=== PATIENT | female | born 1940 | race Caucasian/White ===

== ENCOUNTER 2024-04-20 18:41 | Observation (INO) | payer BC, SELFPAY ==
[2024-04-20] VITALS (10 sets, daily range): BP systolic 87–155; BP diastolic 50–79; BMI 34.3; BMI 34.6
[2024-04-20] MEDS: ZOFRAN 4 MG IV (15:38)
[2024-04-20] MEDS: NSS 1000 IV (15:38)
[2024-04-20 15:52] LABS: % Basophils 0.4 % (0-2); % Eosinophils 0.4 % (0-6); % Immature Granulocytes 0.4 % (0-0.5); % Lymphocytes 14.1 % (20.5-51.1); % Monocytes 7.9 % (1.7-9.3); % Neutrophils 76.8 % (42.2-75.2); Absolute Lymphocytes 1.4 10^3/uL (1.2-3.4); Absolute Monocytes 0.8 10^3/uL (0.1-0.6); Absolute Neutrophils 7.7 10^3/uL (1.4-6.5); Hematocrit 41.2 % (37.0-47.0); Hemoglobin 13.3 g/dL (12.0-16.0); Mean Corp Hgb Conc. 32.3 g/dL (33.0-37.0); Mean Corpuscular Hgb 28.7 pg (27.0-31.0); Mean Corpuscular Volume 88.8 fL (81.0-99.0); Mean Platelet Volume 11.5 fL (7.4-10.4); Nucleated Red Blood Cells % 0 %; Platelet Count 203 10^3/uL (130-400); Red Blood Cell Count 4.64 10^6/uL (4.20-5.40); White Blood Cell Count 10.1 10^3/uL (4.8-10.8)
[2024-04-20 16:08] LABS: ALT (SGPT) 33 U/L (0-35); AST (SGOT) 31 U/L (14-36); Albumin 3.9 g/dl (3.5-5.0); Alkaline Phosphatase 104 U/L (38-126); Blood Urea Nitrogen 29 mg/dl (7-17); Calcium 9.1 mg/dl (8.4-10.2); Carbon Dioxide 26 mmol/L (22-30); Chloride 106 mmol/L (98-107); Estimated Creatinine Clearance 46 ml/min; Glucose 129 mg/dl (70-99); Potassium 4.1 mmol/L (3.5-5.1); Sodium 140 mmol/L (135-145); Total Bilirubin 1.2 mg/dl (0.2-1.3); Total Protein 6.4 g/dl (6.3-8.2)
--- NOTE | 2024-04-20 16:31 | ED.GENMED ---
History of Present Illness
General
Chief Complaint: Dizziness
Source: patient
Exam Limitations: none
Time Seen by Provider: 04/20/24 15:14
Nursing documentation reviewed up to this point in time: agreed with
History of Present Illness
History of Present Illness:
83-year-old female Eliquis for A-fib vertigo 15 years ago treated with what sounds like vestibular therapy presents with acute onset of dizziness room spinning nausea similar to her prior vertigo at 10 AM no headache no arm or leg weakness, given
Ativan by EMS feeling a bit better no alcohol, non-smoker lives in the [facility], planning on driving home later today if she is feeling better
Past History
Past History
ED Past Medical History: Arrthythmia; Negative CVA
Social History
Tobacco: Non-smoker
Alcohol: None
Drug: None
Personal:
Living: with family
Employment: Retired
Review of Systems
Review of Systems
All Other Systems: Not applicable
Constitutional: Denies fever or fatigue
Respiratory: Reports no symptoms
Cardiac: Reports no symptoms
ABD/GI: Reports nausea and vomiting
: Reports no symptoms
Neurological: Reports dizzy; Denies headache, weakness or numbness
Phy Exam
Physical Exam
Physical Exam:
Physical Exam
General: 83-year-old female looks uncomfortable sitting upright looking straight ahead
Neck: No tongue bite
Heart: Irregular
Lungs: no acute respiratory distress. clear bilaterally
Abdomen: Nontender
Neuro: alert and oriented. no focal neurological deficits 2 beats of horizontal nystagmus to the left
Skin: no rash
Psychiatric: well kept. interactive and cooperative
Extremities: no edema.
Course
Orders/Labs/Results
Orders:
Orders
04/20/24 15:31
Electrocardiogram (*1) Stat
Reason for Study: Other
Other Reason for Exam: neuro symptoms
CT Head W/o Iv Contrast Urgent
Comment:
Reason For Exam: vertigo, eliuqis
Cardiac Monitoring- Treatment ONCE
EKG- Treatment ONCE
04/20/24 15:32
0.9% Sodium Chloride 1000 ml [Nss] 1,000 ml IV BOLUS
Ondansetron Injectable [Zofran] 4 mg IV NOW STA
04/20/24 15:37
Complete Blood Count/With Diff Urgent
Comprehensive Metabolic Panel Urgent
04/20/24 15:39
Physical Therapy Consult [Pt Eval And Treat] Urgent
Activity Level: Ambulate
Abnormal Lab Results
04/20/24
15:37
MCHC 32.3 L g/dL
(33.0-37.0)
RDW 15.0 H %
(11.5-14.5)
MPV 11.5 H fL
(7.4-10.4)
Absolute Neuts (auto) 7.7 H 10^3/uL
(1.4-6.5)
Absolute Monos (auto) 0.8 H 10^3/uL
(0.1-0.6)
Neutrophils % 76.8 H %
(42.2-75.2)
Lymphocytes % 14.1 L %
(20.5-51.1)
BUN 29 H mg/dl
(7-17)
Glucose 129 H mg/dl
(70-99)
04/20/24 15:37
04/20/24 15:37
Vital Signs
Initial and Last Documented VS:
Initial Vital Signs
Temp Pulse Resp BP Pulse Ox
98.2 F 66 20 155/58 96
04/20/24 13:50 04/20/24 13:50 04/20/24 13:50 04/20/24 13:50 04/20/24 13:50
Last Documented Vital Signs
Temp Pulse Resp BP Pulse Ox
98.2 F 60 14 143/60 98
04/20/24 13:50 04/20/24 16:30 04/20/24 16:30 04/20/24 16:00 04/20/24 16:30
MDM/Problems Addressed
Differential Diagnosis Includes:
Benign positional vertigo labyrinthitis intracerebral hemorrhage doubt electrolyte abnormality or arrhythmia
MDM/Problems Addressed:
Dizziness vertigo
Chronic conditions affecting care: Arrhythmia
Acute Exacerbation and/or Progression of Chronic Illness: Arrhythmia
*Radiology
Radiology exam reviewed: radiology read reviewed
*Pulse Oximetry
Patient hypoxic: no
*EKG
Interpreted by ED Provider?: Yes
Interpretation: abnormal
Comparison EKG: no comparison EKG present
Heart Rate: 78
Rate: normal
Ischemia: non-specific ST changes
*Record Clerk Salesperson Interpretation
Rate: normal
Interpretation: normal
Heart Rate: 78
Rhythm: sinus
*Critical Care Note
Total Time (30-74mins, 75-104mins- exclusive of procedures): Not Applicable
Update Note
Update Note:
Update labs and CT noted, will see if PT was able to see the patient
Update PT has not seen the patient yet will see her tomorrow, she is still unsteady on her feet hesitant to go home not unreasonable due to her age lives out of town is on Eliquis
ED Attending Note
-
Portions of this chart may have been created with voice recognition software.� Occasional wrong word or��sound alike� substitutions may have occurred due to the inherent limitations of voice recognition software.
Discharge Plan
Departure
Patient Disposition: Admit
Date of Disposition: 04/20/24
Time of Disposition: 17:29
Admit to: Med/Surg
Presentation/result/management discussed w/ accepting MD/DO: Hospitalist
Patient with high blood pressure during this ER visit?: No
Condition: Good
Discharge Problem:
Vertigo
Referrals:
PRIVATE,PHYSICIAN [Family Provider] -
Interventions
Interventions:
*Risk Screen - Suicide Last Done: 04/20/24 13:50
*General Assessment Last Done: 04/20/24 13:50
*Neglect/Abuse Screening Last Done: 04/20/24 13:50
ED- Fall Risk Assessment Last Done: 04/20/24 13:50
ED- Neurological Assessment Last Done: 04/20/24 13:50
ED Swallowing Screen Last Done: 04/20/24 14:43
Discharge Date and Time
Print Language: VIETNAMESE
[2024-04-20] MEDS: DECADRON 10 MG IV (17:52)
--- NOTE | 2024-04-20 18:09 | HPS.HSE ---
Family Physician
-
Family Physician: PHYSICIAN PRIVATE
Chief Complaint
-
Vertigo
History of Present Illness
83-year-old female with a history of benign paroxysmal positional vertigo about 15 years ago, here complaining of recurrence of vertigo that started this morning.
She has been feeling somewhat off and lightheaded for the past month but the vertigo started today. Had multiple episodes of vomiting.
In the past for vertigo responded to vestibular therapy.
No other recent changes in her health. Denies any headaches. Denies any focal weakness or numbness in her extremities. No changes in speech.
Medical History
Past Medical History
Past Medical History: Reports Other
Additional Past Medical History:
Atrial fibrillation, unknown type
Essential hypertension
Hyperlipidemia
Past Surgical History: Reports Orthopedic
Social History
Tobacco: Former Smoker
Alcohol: Occasional
Drug: None
Personal:
Living: With Family
Family History
Family History: Not pertinent
Allergies / Home Medications
Allergies reflects when Allergies were last updated in [facility].
Home Medications with original date entered in [facility]
Allergy/Medication List:
Allergies
Allergy/AdvReac Type Severity Reaction Status Date / Time
Sulfa (Sulfonamide Allergy Rash Verified 04/20/24 13:57
Antibiotics)
Home Medications
apixaban 5 mg tablet (Eliquis) 5 mg PO BID 04/20/24
atenolol 50 mg tablet 50 mg PO HS 04/20/24
atorvastatin 10 mg tablet 10 mg PO HS 04/20/24
cetirizine 10 mg tablet (Zyrtec) 10 mg PO DAILYPRN PRN allergies 04/20/24
furosemide 20 mg tablet 20 mg PO DAILY 04/20/24
peg 400-propylene glycol (PF) 0.4 %-0.3 % eye drops in a dropperette (Systane (PF)) 1 drp BOTH EYES Q4HPRN PRN dry eyes 04/20/24
potassium chloride 10 mEq tablet,extended release 10 meq PO DAILY 04/20/24
Review of Systems
-
History Source: Patient and Family
A 12 point ROS was completed and negative except as noted: Yes
Physical Exam
Vital Signs
Vital Signs
Temp Pulse Resp BP Pulse Ox
98.2 F 65 12 122/58 98
04/20/24 13:50 04/20/24 18:00 04/20/24 18:00 04/20/24 18:00 04/20/24 18:00
Physical Exam
General: Well Developed, Well Nourished, No Apparent Distress, Comfortable and Obese
HEENT: NormoCephalic, Anicteric and Moist mucous membranes
Respiratory: Clear
Cardiac: S1/S2 and Regular Rhythm
GI: Soft, Non Tender and Non Distended
Genito-urinary: Deferred by me
Musculoskeletal: No Clubbing, No Cyanosis and No Edema
Skin: Warm and Dry
Neuro: AO x 3 and Other (Hints exam negative, very mild unilateral nystagmus towards the right)
Hematologic/Lymphatic: No Lymphadenopathy
Psych: Calm
Laboratory Results
-
04/20/24 15:37
04/20/24 15:37
Laboratory Results
Total Bilirubin 1.2 mg/dl (0.2-1.3) 04/20/24 15:37
AST 31 U/L (14-36) 04/20/24 15:37
ALT 33 U/L (0-35) 04/20/24 15:37
Alkaline Phosphatase 104 U/L (38-126) 04/20/24 15:37
Impression/Plan
-
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 Likely right-sided. Consult physical therapy for Mary Beth maneuver. Continue antiemetics.
Admit to MedSurg observation.
Atrial fibrillation -unknown type. Continue Eliquis, atenolol.
Hyperlipidemia -continue atorvastatin.
Chronic lower extremity edema -on furosemide for cosmetic reasons. Hold furosemide in the hospital given relatively low blood pressure.
Obesity due to excess calories
Full code
Family updated at the bedside.
[2024-04-20] MEDS: ELIQUIS 5 MG PO (21:03)
[2024-04-20] MEDS: TENORMIN 50 MG PO (21:03)
[2024-04-20] MEDS: LIPITOR 10 MG PO (21:03)
--- NOTE | 2024-04-20 23:45 | PTCARENOTE ---
Patient arrived to unit via stretcher from ED. Patient pulled over from stretcher to bed on . Patient AAOx3 and able to make needs known. Several family members with patient. Patient c/o intermittent dizziness. Oriented to unit. Call flores
within reach. Plan of care ongoing.
[2024-04-21 07:00] VITALS: BP 127/56
[2024-04-21] MEDS: ELIQUIS 5 MG PO ×2 (07:57→20:48)
[2024-04-21 10:32] VITALS: BP 130/72; BP 136/70; BP 142/71; BP 143/63; PULSE 56; PULSE 59; PULSE 60; O2SAT 97
--- NOTE | 2024-04-21 12:35 | W.PN.HOSP.TC ---
Today's Communication/Plan
-
Continue Mary Beth maneuver as per PT
Assessment / Plan
Assessment / Plan
Gen-AAOx3, NAD
HEENT-NC, AT, anicteric, clear oral mm
Neck-supple
CV-reg, no M, +S1/S2
Lungs-clear B/L
Abd-soft, NT, ND
Ext-no edema
Musculoskeletal-no cyanosis, clubbing
Skin-warm and dry
Neuro-grossly non-focal
Psych-calm, cooperative
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 Seen by PT today and noted to have left-sided nystagmus. To be seen again by PT tomorrow for Mary Beth maneuver.
Patient and prefer to stay in the hospital, they do not feel safe for discharge.
Atrial fibrillation -unknown type. Continue Eliquis, atenolol.
Hyperlipidemia -continue atorvastatin.
Chronic lower extremity edema -on furosemide for cosmetic reasons. Hold furosemide in the hospital given relatively low blood pressure.
Obesity due to excess calories
Full code
Family updated at the bedside.
Anticipated Discharge: Within 24 hours
Subjective/Interval History
-
Date of Service: April 21, 2024
Patient seen and examined. Still complaining of vertigo.
Objective Data
-
Vital Signs:
Vital Signs
Temp Pulse Resp BP Pulse Ox
97.8 F 60 17 127/56 96
04/21/24 07:00 04/21/24 07:00 04/21/24 07:00 04/21/24 07:00 04/21/24 07:00
I&O
04/20/24 04/21/24 04/22/24
06:59 06:59 06:59
Intake Total 240 / 240
Balance 240 / 240
Review of Systems
-
History Source: Patient
All other systems: Reviewed and negative
[2024-04-21 15:00] VITALS: BP 127/56
[2024-04-21] MEDS: TYLENOL 650 MG PO (16:32)
--- NOTE | 2024-04-21 16:58 | CM ---
Met with patient to obtain information for assessment. Patient's family all at bedside. Patient stated that she and her spouse live in [place] in a [place]lex which is multi story and 2 steps to enter. She described herself as independent with her
ADLs, personal care, dressing and bathing. 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 She can drive and can get herself to her appointments and do all of her own shopping.
Patient denied any DME.
She has had VN in the distant past.
She has been to a SNF (multiple) near her home in [place].
Patient has a prescription plan and uses, [facility] in [place] for all of her medications while she is in the area.
Her PCP is, not listed however she stated that she does have one out in [place].
Patient stated that she would be willing to do outpatient therapy at home in [place] if indicated.
Plan: Case management will continue to follow and assist with discharge planning. Home when stable.
[2024-04-21] MEDS: TENORMIN 50 MG PO (22:15)
[2024-04-21] MEDS: LIPITOR 10 MG PO (22:15)
[2024-04-21] MEDS: TUMS CHEWABLE TABLET 200 MG PO (22:15)
[2024-04-21 23:00] VITALS: BP 127/59
[2024-04-22 06:00] VITALS: BMI 34.7
[2024-04-22 07:00] VITALS: BP 132/63
[2024-04-22] MEDS: ELIQUIS 5 MG PO ×2 (08:02→19:58)
[2024-04-22 15:00] VITALS: BP 132/66
--- NOTE | 2024-04-22 15:40 | W.PN.HOSP.TC ---
Today's Communication/Plan
-
Discharge
Assessment / Plan
Assessment / Plan
Gen-AAOx3, NAD
HEENT-NC, AT, anicteric, clear oral mm
Neck-supple
CV-reg, no M, +S1/S2
Lungs-clear B/L
Abd-soft, NT, ND
Ext-no edema
Musculoskeletal-no cyanosis, clubbing
Skin-warm and dry
Neuro-grossly non-focal
Psych-calm, cooperative
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 Clinically improving. Continue Mary Beth maneuvers on discharge.
Today patient and feel comfortable going home. Hospital to provide rolling walker on discharge. Prescription for outpatient therapy for positional vertigo provided.
Atrial fibrillation -unknown type. Continue Eliquis, atenolol.
Hyperlipidemia -continue atorvastatin.
Chronic lower extremity edema -on furosemide for cosmetic reasons. Hold furosemide in the hospital given relatively low blood pressure.
Obesity due to excess calories
Full code
Dispo -stable for discharge today. Outpatient follow-up.
Family updated at the bedside.
31 minutes spent in discharge process.
Anticipated Discharge: Today
Subjective/Interval History
-
Date of Service: April 22, 2024
Patient seen and examined. Overall vertigo has improved, but not resolved. Able to ambulate to the bathroom with a rolling walker.
Objective Data
-
Vital Signs:
Vital Signs
Temp Pulse Resp BP Pulse Ox
97.7 F 60 18 132/63 96
04/22/24 07:00 04/22/24 07:00 04/22/24 07:00 04/22/24 07:00 04/22/24 07:00
I&O
04/21/24 04/22/24 04/23/24
06:59 06:59 06:59
Intake Total 240 / 240 1560 / 1560
Balance 240 / 240 1560 / 1560
Review of Systems
-
History Source: Patient
All other systems: Reviewed and negative
--- NOTE | 2024-04-22 15:59 | CM ---
MD indicated ready for discharge.
Spoke with pt and Sherwin in room. They were visiting and live in [place].
She said she will follow up with her vestibular chinic back home.
Sherwin will drive her home.
She was issued a walker by PT staff after pt request.
PLAN Home no needs
[2024-04-22 19:56] VITALS: BP 125/61
[2024-04-22] MEDS: TENORMIN 50 MG PO (19:58)
[2024-04-22] MEDS: LIPITOR 10 MG PO (19:58)
--- NOTE | 2024-04-23 06:58 | W.DS.TRANS ---
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
-
Discharge Instructions:
Sleep Apnea Risk Intermediate
Discharge Diagnosis/Procedures Benign positional vertigo
Diet Regular
Activity As tolerated
Driving Restrictions As prior to admission
Bathing Restrictions None
Instructions:
Stand-Alone Forms:
Changes to Home Medications: No
Discharge Medications:
DC Medications w/original date entered in [facility]
apixaban 5 mg tablet (Eliquis) 5 mg PO BID Blood Clot Prevention/Tx 04/20/24
atenolol 50 mg tablet 50 mg PO HS Heart Disease/BP 04/20/24
atorvastatin 10 mg tablet 10 mg PO HS High Cholesterol 04/20/24
cetirizine 10 mg tablet (Zyrtec) 10 mg PO DAILYPRN PRN allergies 04/20/24
furosemide 20 mg tablet 20 mg PO DAILY Fluid Retention/Swelling 04/20/24
peg 400-propylene glycol (PF) 0.4 %-0.3 % eye drops in a dropperette (Systane (PF)) 1 drp BOTH EYES Q4HPRN PRN dry eyes 04/20/24
potassium chloride 10 mEq tablet,extended release 10 meq PO DAILY Electrolyte Repletion 04/20/24
ondansetron 4 mg disintegrating tablet 4 mg PO Q6H PRN nausea and vomiting #14 tabs 04/23/24
Home Medication Changes
Pending Results: No
[2024-04-23 07:30] VITALS: BP 150/65
[2024-04-23] MEDS: ELIQUIS 5 MG PO (07:35)
--- NOTE | 2024-04-23 09:32 | CM ---
MD entered order for discharge.
They were visiting and live in [place].
She said she will follow up with her vestibular chinic back home.
Sherwin will drive her home.
She was issued a walker by PT staff after pt request and MD script.
PLAN Home no needs
== END 2024-04-23 09:52 | disposition home or self-care (01) ==
LOC: 3 WEST ACU 18:41
PROVIDERS: ADMITTING PHYSICIAN Hospitalist; EMERGENCY PHYSICIAN Emergency Medicine
DX: H81.10 Benign paroxysmal vertigo, unspecified ear (principal); I48.91 Unspecified atrial fibrillation; H55.00 Unspecified nystagmus; R29.818 Other symptoms and signs involving the nervous system; R26.81 Unsteadiness on feet; R03.1 Nonspecific low blood-pressure reading; I10 Essential (primary) hypertension; R60.0 Localized edema; E66.09 Other obesity due to excess calories; E78.5 Hyperlipidemia, unspecified; Z88.2 Allergy status to sulfonamides; Z87.891 Personal history of nicotine dependence; Z79.01 Long term (current) use of anticoagulants; Z68.34 Body mass index [BMI] 34.0-34.9, adult
CPT/HCPCS: 70450; 80053; 85025; 93005; 96361; 96374; 96375; 97112; 97116; 97163; 97164; 99285; G0378